=== PATIENT | male | born 1970 | race Caucasian/White ===

== ENCOUNTER 2025-03-18 06:18 | Day surgery (SDC) | payer BC, SELFPAY | END 2025-03-18 15:23 | disposition home or self-care (01) | LOC: GI 06:18 | PROVIDERS: ATTENDING PHYSICIAN Internal Medicine Gastroenterology | DX: Z12.11 Encounter for screening for malignant neoplasm of colon (principal); K64.8 Other hemorrhoids; D12.0 Benign neoplasm of cecum; D12.2 Benign neoplasm of ascending colon; Z83.719 Family history of colon polyps, unspecified | CPT/HCPCS: 45385; 88305 ==